=== PATIENT | male | born 1945 | race African-American/Black ===

== ENCOUNTER 2021-11-18 04:13 | Emergency (ER) | payer MEDICARE, OTHER ==
[~2021-11-18] VITALS: Ht 185.4 cm; Wt 88.0 kg
[~2021-11-18 04:13] MED LIST: ATEN-42 PO; ATOR10TA69 PO; CHOL200074; INSU100I19 SQ; MAGN420T PO; METF500T60 PO; P20 PO; POTA-9 PO; TAMS-11 PO
[2021-11-18] MEDS ORDERED: FLUT9.9S BOTHNSTRLS (06:06)
[2021-11-18 06:29] LABS: CLARITY URINE CLEAR (CLEAR); COLOR URINE ORANGE (YELLOW); KETONES URINE NEGATIVE (NEGATIVE); LEUKOCYTE ESTERASE URINE TRACE (NEGATIVE); NITRITE URINE NEGATIVE (NEGATIVE); OCCULT BLOOD URINE 3+ (NEGATIVE); PH URINE 5.5 (4.5-8.0); PROTEIN URINE 2+ (NEGATIVE); SPECIFIC GRAVITY URINE 1.012 (1.005-1.030); UROBILINOGEN URINE 0.2 E.U./dL (0.2-1.0)
[2021-11-18 07:47] VITALS: BP 142/75
== END 2021-11-18 07:48 | disposition home or self-care (01) ==
LOC: ER 04:13
DX: T83.091A Other mechanical complication of indwelling urethral catheter, initial encounter (principal)
CPT/HCPCS: 81003; 99283

== ENCOUNTER 2022-02-03 15:37 | Emergency (ER) | payer MEDICARE, OTHER ==
[~2022-02-03] VITALS: Ht 185.4 cm; Wt 84.0 kg
[~2022-02-03 15:37] MED LIST changes: +FLUT9.9S BOTHNSTRLS; +POTA-202 PO; -POTA-9 PO
[2022-02-03 16:30] LABS: BASOPHILS % 1.3 % (0.0-2.0); EOSINOPHILS % 0.8 % (0.0-5.0); HEMATOCRIT. 43.2 % (42.0-52.0); HEMOGLOBIN. 14.4 g/dL (14.0-18.0); LYMPHOCYTES % 37.9 % (20.0-50.0); MEAN CORPUSCULAR HEMOGLOBIN 28.3 pg (28.0-32.0); MEAN CORPUSCULAR VOLUME 85.2 fL (80.0-94.0); MEAN PLATELET VOLUME 8.2 fl (7.4-10.4); MONOCYTES % 7.8 % (2.0-8.0); NEUTROPHILS % 52.2 % (40.0-76.0); PLATELET 195 x1000/uL (130-400); RED BLOOD CELL COUNT 5.07 mill/uL (4.7-6.1); RED CELL DISTRIBUTION WIDTH 14.5 % (11.6-14.6)
[2022-02-03 16:35] LABS: CHLORIDE 93 mEq/L (98-107)
[2022-02-03 16:45] LABS: ETHANOL BLOOD < 10 mg/dL
[2022-02-03 18:00] VITALS: BP 186/97
== END 2022-02-03 19:44 | disposition home or self-care (01) ==
LOC: ER 15:37
DX: R51.9 Headache, unspecified (principal); J44.1 Chronic obstructive pulmonary disease with (acute) exacerbation; E11.9 Type 2 diabetes mellitus without complications; I10 Essential (primary) hypertension; Z79.899 Other long term (current) drug therapy
CPT/HCPCS: 36415; 70486; 71045; 80053; 80320; 85025; 99285; G0480